=== PATIENT | male | born 1990 | race Caucasian/White ===

== ENCOUNTER → 2021-02-23 | Emergency (ER) | payer BC ==
[~2021-02-23] MED LIST: GLUCAGON 1 MG KIT IM ONE; GLUCAGON 1 MG KIT ONE; ONDANSETRON 4 MG/2 ML VIAL IVPUSH ONE
[2021-02-23 17:11] VITALS: BP 118/79; PULSE 81; TEMP 98; BMI 25.8
== END | disposition home or self-care (01) ==
LOC: JERFT 16:48
PROC: 3E023GC Introduction of Other Therapeutic Substance into Muscle, Percutaneous Approach (ICD-10-PCS; principal; 2021-02-23)
PROC: 3E033GC Introduction of Other Therapeutic Substance into Peripheral Vein, Percutaneous Approach (ICD-10-PCS; 2021-02-23)
DX: T18.9XXA Foreign body of alimentary tract, part unspecified, initial encounter (principal)
CPT/HCPCS: 70360-TC-FY; 71046-TC-FY; 82962; 99285-25